=== PATIENT | female | born 1940 | race African-American/Black ===

== ENCOUNTER 2017-05-08 02:46 | Observation (INO) | payer MEDICARE, MEDICAID ==
[~2017-05-08] VITALS: Ht 165.1 cm; Wt 97.5 kg
[2017-05-08] MEDS ORDERED: MORPHINE SULFATE 4 MG/ML CPJ (NOT FOR IM USE) IV STA (03:32)
[2017-05-08] MEDS ORDERED: ONDANSETRON HCL 4MG/2ML VIAL IV STA (03:32)
[2017-05-08] MEDS ORDERED: SODIUM CHLORIDE 0.9% 500 ML IV ONE (03:32)
[2017-05-08] MEDS ORDERED: ASPIRIN 81MG TABLET PO STA (03:32)
[2017-05-08] MEDS ORDERED: CLINDAMYCIN 600 MG in DEXTROSE 5% WATER 50 ML IV ONE (03:45)
[2017-05-08 03:57] LABS: BASOPHILS % 0.9 % (0.0-2.0); HEMATOCRIT. 38.2 % (36.0-48.0); HEMOGLOBIN. 12.6 g/dL (12.0-16.0); LYMPHOCYTES % 35.1 % (20.0-50.0); MEAN CORPUSCULAR HEMOGLOBIN 29.1 pg (28.0-32.0); MEAN PLATELET VOLUME 8.5 fl (7.4-10.4); MONOCYTES % 9.6 % (2.0-8.0); NEUTROPHILS % 51.4 % (40.0-76.0); PLATELET 206 x1000/uL (130-400); RED BLOOD CELL COUNT 4.34 mill/uL (4.2-5.4)
[2017-05-08 04:00] LABS: INR 1.1; PARTIAL THROMBOPLASTIN TIME 26.1 sec (23.4-31.0); PROTHROMBIN TIME 11.1 sec (9.4-11.6)
[2017-05-08 04:19] LABS: CARBON DIOXIDE 31 mEq/L (21-32); CHLORIDE 104 mEq/L (98-107); TROPONIN I < 0.02 ng/mL (0.00-0.04)
[2017-05-08] MEDS ORDERED: MORPHINE SULFATE 10 MG/ML CPJ IV NR (04:45)
[2017-05-08] MEDS ORDERED: IOHEXOL-350 100 ML BOTTLE ONE (06:31)
[2017-05-08 17:15] VITALS: BP 137/52
[2017-05-08 17:53] VITALS: BP 137/52
[2017-05-08 20:00] VITALS: BP 150/62
[2017-05-08] MEDS ORDERED: ONDANSETRON HCL 4MG/2ML VIAL IV PRN (20:30)
[2017-05-08] MEDS ORDERED: ACETAMINOPHEN 325MG TABLET PO PRN (20:30)
[2017-05-08] MEDS ORDERED: HYDROCODONE/ACETAMINOPHEN 5/325MG TABLET PO PRN (20:30)
[2017-05-08] MEDS ORDERED: DEXTROSE 50% WATER 50ML SYRINGE IV PRN (20:30)
[2017-05-08] MEDS: BLOOD SUGAR DIAGNOSTIC STRIP TEST SCH (21:00)
[2017-05-08] MEDS: ENOXAPARIN 30MG/0.3ML SYR SUBCUT SCH (21:51)
[2017-05-08] MEDS ORDERED: VANCOMYCIN 2,000 MG in DEXT 5% WATER 500 ML IV NR (22:00)
[2017-05-08] MEDS: INSULIN LISPRO 100 UNITS/ML SUBCUT SCH (22:01)
[2017-05-09] VITALS: BP 131/53
[2017-05-09 04:00] VITALS: BP 157/80
[2017-05-09 08:00] VITALS: BP 177/70
[2017-05-09] MEDS: CLOPIDOGREL 75MG TABLET PO SCH (08:34)
[2017-05-09] MEDS: ENOXAPARIN 30MG/0.3ML SYR SUBCUT SCH ×2 (08:35→21:38)
[2017-05-09] MEDS: INSULIN LISPRO 100 UNITS/ML SUBCUT SCH ×4 (08:45→21:40)
[2017-05-09] MEDS ORDERED: ENOXAPARIN 40MG/0.4ML SYR SUBCUT SCH (09:00)
[2017-05-09] MEDS ORDERED: CLONIDINE 0.1MG TABLET PO PRN (10:30)
[2017-05-09] MEDS: VANCOMYCIN 1 G PREMIX 200 ML IV SCH (10:32)
[2017-05-09 12:00] VITALS: BP 146/49
[2017-05-09] MEDS: BLOOD SUGAR DIAGNOSTIC STRIP TEST SCH ×3 (12:04→21:38)
[2017-05-09 16:00] VITALS: BP 139/65
[2017-05-09] MEDS ORDERED: VANCOMYCIN 1 G PREMIX 200 ML IV SCH (18:00)
[2017-05-09 20:00] VITALS: BP 148/52
[2017-05-10] VITALS: BP 150/56
[2017-05-10 04:00] VITALS: BP 153/70
[2017-05-10] MEDS: INSULIN LISPRO 100 UNITS/ML SUBCUT SCH ×2 (06:36→13:31)
[2017-05-10] MEDS: BLOOD SUGAR DIAGNOSTIC STRIP TEST SCH ×2 (06:36→12:20)
[2017-05-10 08:00] VITALS: BP 148/67
[2017-05-10] MEDS: CLOPIDOGREL 75MG TABLET PO SCH (09:18)
[2017-05-10] MEDS: ENOXAPARIN 30MG/0.3ML SYR SUBCUT SCH (09:19)
[2017-05-10] MEDS: VANCOMYCIN 1 G PREMIX 200 ML IV SCH (09:28)
[2017-05-10 12:00] VITALS: BP 157/65
== END 2017-05-10 15:50 | disposition home or self-care (01) ==
LOC: ER 02:46 → EDBEDREQ 06:58 → EDBEDREQSVC 07:43 → 6EST 07:53 → INTOOBSV 07:53 → EDBEDREQ 07:57 → ENRESERV 15:34 → CANBEDREQ 16:07 → EDBEDREQ 16:59
PROVIDERS: ADMIT Internal Medicine; ATTEND Internal Medicine
DX: E11.40 Type 2 diabetes mellitus with diabetic neuropathy, unspecified (principal); I11.0 Hypertensive heart disease with heart failure; I50.9 Heart failure, unspecified; M19.90 Unspecified osteoarthritis, unspecified site; J45.909 Unspecified asthma, uncomplicated; K21.9 Gastro-esophageal reflux disease without esophagitis; E66.01 Morbid (severe) obesity due to excess calories; J98.11 Atelectasis; M06.9 Rheumatoid arthritis, unspecified; N28.1 Cyst of kidney, acquired; Z82.49 Family history of ischemic heart disease and other diseases of the circulatory system; Z83.3 Family history of diabetes mellitus; Z86.73 Personal history of transient ischemic attack (TIA), and cerebral infarction without residual deficits; Z90.49 Acquired absence of other specified parts of digestive tract; Z90.710 Acquired absence of both cervix and uterus
CPT/HCPCS: 36415; 71010; 75635; 80053; 82962; 83605; 83880; 84484; 85025; 85610; 85730; 87040; 93005; 93970; 96365; 96366; 96367; 96372; 96375; 99285; G0378; J1650; J1815; J2270; J2405; J3370; J3490; J7040; J7050; Q9967; J7060

== ENCOUNTER 2018-09-06 06:34 | Emergency (ER) | payer BC, MEDICAID, MEDICARE, OTHER ==
[~2018-09-06] VITALS: Ht 177.8 cm; Wt 95.0 kg
[2018-09-06] MEDS ORDERED: ACETAMINOPHEN 325MG TABLET PO ONE (07:30)
[2018-09-06 10:02] VITALS: BP 163/85
== END 2018-09-06 11:03 | disposition home or self-care (01) ==
LOC: ER 06:34
DX: S09.8XXA Other specified injuries of head, initial encounter (principal); M54.2 Cervicalgia; M54.5 Low back pain; M25.562 Pain in left knee; M25.561 Pain in right knee; M19.90 Unspecified osteoarthritis, unspecified site; J45.909 Unspecified asthma, uncomplicated; E11.9 Type 2 diabetes mellitus without complications; I10 Essential (primary) hypertension; J44.9 Chronic obstructive pulmonary disease, unspecified; Z86.73 Personal history of transient ischemic attack (TIA), and cerebral infarction without residual deficits; Z98.890 Other specified postprocedural states; Z88.0 Allergy status to penicillin; Z88.2 Allergy status to sulfonamides; W18.39XA Other fall on same level, initial encounter; Y93.89 Activity, other specified; Y92.89 Other specified places as the place of occurrence of the external cause; Y99.8 Other external cause status
CPT/HCPCS: 72070; 72100; 72170; 73562; 99284

== ENCOUNTER 2020-02-20 14:14 | Emergency (ER) | payer MEDICARE ==
[~2020-02-20] VITALS: Ht 165.1 cm; Wt 99.7 kg
[2020-02-20] MEDS ORDERED: TETANUS, DIPHTHERIA, PERTUSSIS VAC/PF 0.5ML (>7YR OLD) IM ONE (16:15)
[2020-02-20 17:46] LABS: BASOPHILS % 0.5 % (0.0-2.0); EOSINOPHILS % 2.7 % (0.0-5.0); HEMATOCRIT. 38.8 % (36.0-48.0); HEMOGLOBIN. 12.8 g/dL (12.0-16.0); LYMPHOCYTES % 34.1 % (20.0-50.0); MEAN CORPUSCULAR VOLUME 91.2 fL (81.0-99.0); MONOCYTES % 6.2 % (2.0-8.0); NEUTROPHILS % 56.5 % (40.0-76.0); PLATELET 217 x1000/uL (130-400); RED BLOOD CELL COUNT 4.26 mill/uL (4.2-5.4)
[2020-02-20 17:50] LABS: CHLORIDE 106 mEq/L (98-107)
[2020-02-20 19:48] VITALS: BP 150/61
== END 2020-02-20 19:45 | disposition home or self-care (01) ==
LOC: ER 14:14
DX: E11.40 Type 2 diabetes mellitus with diabetic neuropathy, unspecified (principal); M25.511 Pain in right shoulder; J45.909 Unspecified asthma, uncomplicated; J44.9 Chronic obstructive pulmonary disease, unspecified; E11.9 Type 2 diabetes mellitus without complications; I10 Essential (primary) hypertension; Z86.73 Personal history of transient ischemic attack (TIA), and cerebral infarction without residual deficits; Z88.0 Allergy status to penicillin; Z88.2 Allergy status to sulfonamides
CPT/HCPCS: 36415; 73030; 80048; 85025; 90471; 90715; 93005; 99284; 99285

== ENCOUNTER 2021-05-10 11:44 | Emergency (ER) | payer MEDICARE, OTHER ==
[~2021-05-10] VITALS: Ht 160 cm; Wt 84.0 kg
[2021-05-10] MEDS ORDERED: IPRATROPIUM BROMIDE (0.02%) 0.5MG/2.5ML NEB HHN STA ×2 (13:17→20:09)
[2021-05-10] MEDS ORDERED: ALBUTEROL (0.083%) 2.5MG/3ML NEB HHN SCH ×2 (13:30→20:30)
[2021-05-10 14:43] LABS: BASOPHILS % 0.6 % (0.0-2.0); EOSINOPHILS % 2.1 % (0.0-5.0); HEMATOCRIT. 36.2 % (36.0-48.0); HEMOGLOBIN. 11.6 g/dL (12.0-16.0); LYMPHOCYTES % 24.3 % (20.0-50.0); MEAN CORPUSCULAR HEMOGLOBIN 28.4 pg (28.0-32.0); MEAN CORPUSCULAR VOLUME 88.6 fL (81.0-99.0); MEAN PLATELET VOLUME 8.3 fl (7.4-10.4); MONOCYTES % 8.7 % (2.0-8.0); NEUTROPHILS % 64.3 % (40.0-76.0); PLATELET 229 x1000/uL (130-400); RED BLOOD CELL COUNT 4.09 mill/uL (4.2-5.4); RED CELL DISTRIBUTION WIDTH 14.8 % (11.6-14.6)
[2021-05-10 14:50] LABS: CHLORIDE 104 mEq/L (98-107)
[2021-05-10] MEDS ORDERED: FUROSEMIDE 40MG/4ML VIAL IVP ONE (15:45)
[2021-05-10 16:26] LABS: CLARITY URINE CLEAR (CLEAR); COLOR URINE YELLOW (YELLOW); KETONES URINE NEGATIVE (NEGATIVE); LEUKOCYTE ESTERASE URINE TRACE (NEGATIVE); NITRITE URINE NEGATIVE (NEGATIVE); OCCULT BLOOD URINE NEGATIVE (NEGATIVE); PH URINE 7.5 (4.5-8.0); PROTEIN URINE NEGATIVE (NEGATIVE); SPECIFIC GRAVITY URINE 1.021 (1.005-1.030); UROBILINOGEN URINE 0.2 E.U./dL (0.2-1.0)
[2021-05-10] MEDS ORDERED: ALBU6.7H9 INH (20:18)
[2021-05-10] MEDS ORDERED: ATROV INH (20:18)
[2021-05-10 20:55] VITALS: BP 156/93
== END 2021-05-10 21:11 | disposition home or self-care (01) ==
LOC: ER 11:55
DX: J44.9 Chronic obstructive pulmonary disease, unspecified (principal); I11.0 Hypertensive heart disease with heart failure; I50.9 Heart failure, unspecified; I69.954 Hemiplegia and hemiparesis following unspecified cerebrovascular disease affecting left non-dominant side; Z91.14 Patient's other noncompliance with medication regimen; Z88.0 Allergy status to penicillin; Z88.2 Allergy status to sulfonamides; Z91.040 Latex allergy status
CPT/HCPCS: 36415; 71045; 80053; 81003; 83605; 83880; 84484; 85025; 93005; 94640; 96374; 99285; J1940